=== PATIENT | male | born 1970 | race Caucasian/White ===

== ENCOUNTER 2018-12-03 22:17 | Emergency (ER) | payer OTHER ==
[~2018-12-03] VITALS: Ht 172.7 cm; Wt 79.4 kg
[2018-12-03 22:22] VITALS: BP 143/91
[2018-12-03] MEDS ORDERED: IBUPROFEN 600 MG TABLET PO ONE (22:50)
[2018-12-03] MEDS ORDERED: IBUPROFEN 200 MG TABLET ONE (22:56)
[2018-12-03] MEDS ORDERED: IBUPROFEN 400 MG TABLET PO ONE (23:00)
--- NOTE | 2018-12-04 00:50 | NUR ---
CALLED PERCY RE: ANKLE XRAY
== END 2018-12-04 01:41 | disposition home or self-care (01) ==
LOC: ER 22:20
DX: S86.011A Strain of right Achilles tendon, initial encounter (principal); F17.200 Nicotine dependence, unspecified, uncomplicated; F12.10 Cannabis abuse, uncomplicated; Z98.890 Other specified postprocedural states; Z60.2 Problems related to living alone; X58.XXXA Exposure to other specified factors, initial encounter; Y93.69 Activity, other involving other sports and athletics played as a team or group; Y92.89 Other specified places as the place of occurrence of the external cause; Y99.8 Other external cause status
CPT/HCPCS: 73610-TC; 93971-TC